=== PATIENT | female | born 1995 | race African-American/Black ===

== ENCOUNTER 2025-08-29 14:39 | Emergency (ER) | payer MEDICAID ==
[~2025-08-29] VITALS: Ht 157.5 cm; Wt 85.0 kg
[2025-08-29 14:44] VITALS: TEMP 98.1
[2025-08-29] MEDS ORDERED: CYAN100T45 PO (14:48)
[2025-08-29] MEDS ORDERED: FOLI0.4T6 PO (14:48)
[2025-08-29 15:12] LABS: PLATELET COUNT (AUTO) 309 K/uL (150-450); RED BLOOD CELL COUNT(AUTO) 4.21 MIL/uL (4.00-5.20); RED CELL DISTRIBUTION WIDTH 14.6 % (11.5-14.5); WHITE BLOOD COUNT (AUTO) 4.7 K/uL (4.5-11.0)
[2025-08-29 15:17] LABS: CALCIUM, TOTAL 8.5 mg/dL (8.8-10.5); CREATININE 0.63 mg/dL (0.60-1.30); GLOMERULAR FILTR. RATE CALC > 60 mL/min (>60); GLUCOSE,RANDOM 89 mg/dL (70-110); SODIUM SERUM 140 mmol/L (136-145); UREA NITROGEN, BLOOD 6 mg/dL (7-18)
[2025-08-29] MEDS ORDERED: SODIUM CHLORIDE 0.9% 1,000 ML IV ONE (16:45)
[2025-08-29 19:35] VITALS: BP 121/83; PULSE 85; RESP 18; O2SAT 99
== END 2025-08-29 19:50 | disposition home or self-care (01) ==
LOC: EMS 14:39
DX: O20.9 Hemorrhage in early pregnancy, unspecified (principal); N89.8 Other specified noninflammatory disorders of vagina; Z91.0110 Allergy to milk products, unspecified; Z91.040 Latex allergy status; Z98.890 Other specified postprocedural states; Z79.899 Other long term (current) drug therapy; Z3A.01 Less than 8 weeks gestation of pregnancy
CPT/HCPCS: 76801; 80048; 84702; 85025; 86901; 99284

== ENCOUNTER 2025-09-23 12:34 | Emergency (ER) | payer MEDICAID ==
[~2025-09-23] VITALS: Ht 154.9 cm; Wt 84.0 kg
[~2025-09-23 12:34] MED LIST: CYAN100T45 PO; FOLI0.4T6 PO
[2025-09-23 12:48] VITALS: BP 126/88; PULSE 108; RESP 18; TEMP 98.2; O2SAT 100
== END 2025-09-23 15:22 | disposition home or self-care (01) ==
LOC: EMS 12:38
DX: Z32.02 Encounter for pregnancy test, result negative (principal); N89.8 Other specified noninflammatory disorders of vagina; Z98.890 Other specified postprocedural states; Z91.0110 Allergy to milk products, unspecified; Z91.040 Latex allergy status; Z79.899 Other long term (current) drug therapy
CPT/HCPCS: 84702; 84703; 99283